=== PATIENT | male | born 1970 | race Caucasian/White ===

== ENCOUNTER → 2017-02-01 | Outpatient (CLI) | payer OTHER ==
--- NOTE | 2017-02-02 08:43 | PE ---
Nuclear medicine PET/CT HISTORY: Lymphoma Patient received 15.2 mCi F-18 FDG intravenously. Delayed scanning performed from the skull base to t he mid thighs. Localization and attenuation correction CT scan was performed. Correlation to prior nuclear medicine PET/CT 03/23/2016 Neck and chest: No evident adenopathy. Changes of possible gynecomastia noted. No evident lung mass. No suspicious hypermetabolic uptake. Abdomen pelvis: No retroperitoneal adenopathy, no mesenteric adenopathy evident. No liver mass. Osseous structures are within normal limits. Degenerative disc disease present at the lower lumbar sp ine. There may be a disc herniation present. IMPRESSION: No evident recurrence.
== END | disposition home or self-care (01) ==
LOC: RADPETMAIN 07:26
PROVIDERS: ATTEND Internal Medicine Hematology & Oncology
DX: C82.02 Follicular lymphoma grade I, intrathoracic lymph nodes (principal)
CPT/HCPCS: 78815; A9552

== ENCOUNTER → 2018-02-07 | Outpatient (CLI) | payer OTHER ==
--- NOTE | 2018-02-08 14:43 | PE ---
EXAMINATION TYPE: PET CT fusion skull to thigh DATE OF EXAM: 02/07/2018 COMPARISON: No recent CT comparisons at this location. Prior PET/CT: 02/01/2017 HISTORY: Lymphoma TECHNIQUE: Following the intravenous administration of 12.018 mCi of F-18 FDG, whole body images are performed from the skull base to the midthigh. Images are reviewed on the computer in the coronal, axial, and sagittal planes. Reconstructed rotating images are created on independent workstation and reviewed on the computer. A localization and attenuation correction CT is performed in conjunction with the PET scan. DLP: 525.6 mGycm SCAN: Subsequent Blood glucose: 102 mg/dL Average Mediastinum SUV: 1.26 Average Liver SUV: 2.13 FINDINGS: NECK: Mild uptake within the thyroid. Correlate with laboratory values. Suspicious focal hot nodules not identified. Thyroid could be evaluated with ultrasound. No additional areas suspicious for uptak e within the neck are evident. THORAX: No abnormal uptake ABDOMEN: No abnormal uptake PELVIS: There is a focus of radiotracer accumulation within the right inguinal lymph node. This measu res 2.41. Recurrent or residual lymphoma could be considered. OSSEOUS STRUCTURES: No abnormal uptake LOCALIZATION CT: No suspicious enlarged lymphadenopathy within the neck. A small jugulodigastric lymp h node is present on the left. No suspicious uptake is evident. Thyroid appears unremarkable noncontr ast CT images. Shotty lymphadenopathy is in the mediastinum. No enlarged mediastinal nodes by CT crit eria is evident. The ascending thoracic aorta at the level of main pulmonary artery is 3.5 cm. The ma in pulmonary bifurcation is 2.7 cm. Some mild gynecomastia may be present. Clinical correlation breas t exam is recommended. Vascular calcifications within the aorta. The lymph node the right inguinal re gion is enlarged measuring 1.3 cm. Image 252. COMPARISON: Right inguinal lymph node is new. IMPRESSION: 1. Evaluation for recurrence at a right inguinal lymph node is recommended. Additional suspicious are as for recurrent lymphoma are not identified. 2. There is diffuse uptake within the thyroid. Correlate with laboratory thyroid values. Ultrasound c an further evaluate the thyroid.
== END | disposition home or self-care (01) ==
LOC: RADPETMAIN 07:34
PROVIDERS: ATTEND Internal Medicine Hematology & Oncology
DX: C82.02 Follicular lymphoma grade I, intrathoracic lymph nodes (principal); R94.8 Abnormal results of function studies of other organs and systems
CPT/HCPCS: 78815; A9552

== ENCOUNTER → 2018-04-21 | Outpatient (CLI) | payer OTHER | LOC: LABWHC1 12:17 | PROVIDERS: ATTEND Internal Medicine Endocrinology, Diabetes & Metabolism | DX: E03.8 Other specified hypothyroidism (principal) | CPT/HCPCS: 36415; 84443 ==

== ENCOUNTER → 2018-08-15 | Outpatient (CLI) | payer OTHER ==
--- NOTE | 2018-08-16 17:05 | PE ---
EXAMINATION TYPE: PET CT fusion skull to thigh DATE OF EXAM: 08/15/2018 COMPARISON: CT neck 01/29/2016 Prior PET/CT: Most recent exams 02/07/2018 HISTORY: Lymphoma TECHNIQUE: Following the intravenous administration of 13.256 mCi of F-18 FDG, whole body images are performed from the skull base to the midthigh. Images are reviewed on the computer in the coronal, axial, and sagittal planes. Reconstructed rotating images are created on independent workstation and reviewed on the computer. A localization and attenuation correction CT is performed in conjunction with the PET scan. DLP: 511.34 mGycm SCAN: Subsequent Blood glucose: 92 mg/dL Average Mediastinum SUV: 1.3 Average Liver SUV: 1.97 FINDINGS: NECK: No abnormal uptake THORAX: No abnormal uptake ABDOMEN: No abnormal uptake PELVIS: No abnormal uptake. The uptake within the right inguinal region with an SUV value 2.27 is dim inished from 2.41 previously. OSSEOUS STRUCTURES: No abnormal uptake LOCALIZATION CT: Small lymph nodes are in the left axillary region. Descending thoracic aorta measure s 3.6 cm in the main pulmonary artery. The main pulmonary artery measures 2.7 cm in the bifurcation. No suspicious adenopathy enlarged by CT criteria is evident. The appendix is unremarkable. COMPARISON: Previous subtle inguinal uptake may remain present but is diminished from the comparison currently measuring 2.2 cm SUV. This could be inflammatory in nature. IMPRESSION: 1. Minimal uptake within a right inguinal node has diminished SUV value from comparison. 2. No new radiotracer accumulation or enlarging lymphadenopathy is evident.
== END ==
LOC: RADPETMAIN 08:37
PROVIDERS: ATTEND Internal Medicine Hematology & Oncology
DX: C82.02 Follicular lymphoma grade I, intrathoracic lymph nodes (principal)
CPT/HCPCS: 78815; A9552

== ENCOUNTER → 2019-04-20 | Outpatient (CLI) | payer OTHER ==
[2019-04-20 15:48] LABS: Chol/HDL Ratio 4.6; LDL Cholesterol,Calculated 166.2 mg/dL (0.0-131.0); VLDL Calculation 31.8 mg/dL (5.00-40.00)
[2019-04-20 19:31] LABS: Hemoglobin A1C 6.2 % (4.0-6.0)
== END | disposition home or self-care (01) ==
LOC: LABWHC1 08:36
PROVIDERS: ATTEND Internal Medicine Endocrinology, Diabetes & Metabolism
DX: E03.8 Other specified hypothyroidism (principal); R73.09 Other abnormal glucose
CPT/HCPCS: 36415; 80061; 83036; 84443

== ENCOUNTER → 2019-08-27 | Outpatient (CLI) | payer BC, OTHER ==
--- NOTE | 2019-08-30 10:34 | PE ---
EXAMINATION TYPE: PET CT fusion skull to thigh DATE OF EXAM: 08/27/2019 COMPARISON: Prior PET/CT August 15, 2018 and older studies. HISTORY: Lymphoma originally diagnosed in 2013 on neck biopsy. Completed chemotherapy November 2015. TECHNIQUE: Following the intravenous administration of 11.42 mCi of F-18 FDG, whole body images are performed from the skull base to the midthigh. Images are reviewed on the computer in the coronal, a xial, and sagittal planes. Reconstructed rotating images are created on independent workstation and reviewed on the computer. A noncontrast CT is performed in conjunction with the PET scan. SCAN: Subsequent Scan FINDINGS: Mean SUV mediastinum: 0.54 Mean SUV liver: 1.79 SKULL BASE AND NECK: Symmetric uptake above level of vocal cords presumed physiologic axial image 28. No new areas of suspicious hypermetabolic uptake or enlarging adenopathy with particular attention t o the right neck at area of original neoplasm. CHEST, MEDIASTINUM, AND HILAR REGION: No new areas of suspicious hypermetabolic uptake. ABDOMEN AND PELVIS: No new areas of suspicious hypermetabolic uptake. OSSEOUS STRUCTURES: No new areas of suspicious hypermetabolic uptake. OTHER CT: Bilateral gynecomastia redemonstrated. Prostate gland upper limits of normal in size, corre late clinically for BPH. IMPRESSION: No suspicious new hypermetabolic uptake or enlarging adenopathy to suggest active neoplas tic recurrence.
== END | disposition home or self-care (01) ==
LOC: RADPETMAIN 09:49
PROVIDERS: ATTEND Internal Medicine Hematology & Oncology
DX: C82.02 Follicular lymphoma grade I, intrathoracic lymph nodes (principal)
CPT/HCPCS: 78815; A9552

== ENCOUNTER → 2019-09-22 | Outpatient (CLI) | payer BC ==
[2019-09-22 16:20] LABS: African American GFR (CKD) 101.3 (60.0-200.0); Albumin 4.8 g/dL (3.80-4.90); Albumin/Globulin Ratio 2.29 (1.60-3.17); Anion Gap 9.2 mmol/L (4.00-12.00); Calcium 9.9 mg/dL (8.7-10.3); Carbon Dioxide 28.8 mmol/L (21.6-31.8); Chol/HDL Ratio 4.52; Globulin 2.1 g/dL (1.6-3.3); LDL Cholesterol,Calculated 174.8 mg/dL (0.0-131.0); Non-African American GFR(CKD) 87.4 (60.0-200.0); Potassium 4.4 mmol/L (3.5-5.5); Total Bilirubin 0.7 mg/dL (0.3-1.2); Total Protein 6.9 g/dL (6.2-8.2); VLDL Calculation 22.2 mg/dL (5.00-40.00)
[2019-09-22 17:15] LABS: Urine Creatinine 77.4 mg/dL
[2019-09-22 17:24] LABS: Hemoglobin A1C 6.1 % (4.0-6.0)
== END | disposition home or self-care (01) ==
LOC: LABWHC1 10:11
PROVIDERS: ATTEND Internal Medicine Endocrinology, Diabetes & Metabolism
DX: E11.9 Type 2 diabetes mellitus without complications (principal); E03.8 Other specified hypothyroidism
CPT/HCPCS: 36415; 80053; 80061; 82043; 82570; 83036; 84443

== ENCOUNTER → 2019-12-30 | Outpatient (CLI) | payer BC ==
[2019-12-30 18:43] LABS: African American GFR (CKD) 90.2 (60.0-200.0); Albumin 4.5 g/dL (3.80-4.90); Albumin/Globulin Ratio 2.25 (1.60-3.17); Anion Gap 8.3 mmol/L (4.00-12.00); BUN/Creat Ratio 15.45 Ratio (12.00-20.00); Carbon Dioxide 28.7 mmol/L (21.6-31.8); Chol/HDL Ratio 4.85; LDL Cholesterol,Calculated 163.2 mg/dL (0.0-131.0); Non-African American GFR(CKD) 77.9 (60.0-200.0); Potassium 4.2 mmol/L (3.5-5.5); Total Bilirubin 0.6 mg/dL (0.2-1.2); Total Protein 6.5 g/dL (6.2-8.2); VLDL Calculation 21.8 mg/dL (5.00-40.00)
[2019-12-30 20:25] LABS: Microalbumin Creatinine Ratio <30 mg/g Creat (0-30); Urine Creatinine 37.8 mg/dL
[2019-12-30 21:05] LABS: Hemoglobin A1C 6.3 % (4.0-6.0)
== END | disposition home or self-care (01) ==
LOC: LABWHC1 11:03
PROVIDERS: ATTEND Internal Medicine Endocrinology, Diabetes & Metabolism
DX: E11.9 Type 2 diabetes mellitus without complications (principal)
CPT/HCPCS: 36415; 80053; 80061; 82043; 82570; 83036; 84443

== ENCOUNTER → 2020-04-24 | Outpatient (CLI) | payer BC ==
[2020-04-24 15:27] LABS: African American GFR (CKD) 80.7 (60.0-200.0); Albumin 4.6 g/dL (3.80-4.90); Albumin/Globulin Ratio 2.56 (1.60-3.17); Calcium 9.8 mg/dL (8.7-10.3); Chol/HDL Ratio 5.04; Globulin 1.8 g/dL (1.6-3.3); LDL Cholesterol,Calculated 178.4 mg/dL (0.0-131.0); Non-African American GFR(CKD) 69.6 (60.0-200.0); Total Bilirubin 0.6 mg/dL (0.2-1.2); Total Protein 6.4 g/dL (6.2-8.2); VLDL Calculation 23.6 mg/dL (5.00-40.00)
[2020-04-24 16:21] LABS: Microalbumin Creatinine Ratio <30 mg/g Creat (0-30); Urine Creatinine 34.9 mg/dL
[2020-04-24 20:32] LABS: Hemoglobin A1C 5.9 % (4.0-6.0)
[2020-04-25 00:49] LABS: C-Peptide 0.85 ng/mL (0.81-3.85)
== END | disposition home or self-care (01) ==
LOC: LABWHC1 08:46
PROVIDERS: ATTEND Internal Medicine Endocrinology, Diabetes & Metabolism
DX: E11.9 Type 2 diabetes mellitus without complications (principal); E03.8 Other specified hypothyroidism
CPT/HCPCS: 36415; 80053; 80061; 82043; 82570; 83036; 84403; 84443; 84681

== ENCOUNTER → 2021-01-03 | Outpatient (CLI) | payer BC ==
[2021-01-03 16:34] LABS: Hemoglobin A1C 5.7 % (4.0-6.0)
[2021-01-03 18:41] LABS: African American GFR (CKD) 80.7 (60.0-200.0); Albumin 4.6 g/dL (3.80-4.90); Albumin/Globulin Ratio 2.3 (1.60-3.17); Anion Gap 10.4 mmol/L (4.00-12.00); BUN/Creat Ratio 13.33 Ratio (12.00-20.00); Calcium 9.6 mg/dL (8.7-10.3); Carbon Dioxide 26.6 mmol/L (21.6-31.8); Chol/HDL Ratio 5.27; LDL Cholesterol,Calculated 168.6 mg/dL (0.0-131.0); Non-African American GFR(CKD) 69.6 (60.0-200.0); Potassium 4.1 mmol/L (3.5-5.5); Total Bilirubin 0.4 mg/dL (0.3-1.2); Total Protein 6.6 g/dL (6.2-8.2); VLDL Calculation 19.4 mg/dL (5.00-40.00)
[2021-01-03 21:48] LABS: Microalbumin Creatinine Ratio <30 mg/g Creat (0-30); Urine Creatinine 95.5 mg/dL
== END | disposition home or self-care (01) ==
LOC: LABWHC1 08:04
PROVIDERS: ATTEND Internal Medicine Endocrinology, Diabetes & Metabolism
DX: E11.9 Type 2 diabetes mellitus without complications (principal)
CPT/HCPCS: 36415; 80053; 80061; 82043; 82570; 83036; 84443

== ENCOUNTER → 2021-07-31 | Outpatient (CLI) | payer BC ==
[2021-07-31 14:43] LABS: ALT 47 U/L (10-49); AST 25 U/L (14-35); African American GFR (CKD) 80.1 (60.0-200.0); Albumin 4.9 g/dL (3.8-4.9); Albumin/Globulin Ratio 2.62 (1.60-3.17); Alkaline Phosphatase 101 U/L (41-126); BUN/Creat Ratio 14.25 Ratio (12.00-20.00); Blood Urea Nitrogen 17.1 mg/dL (9.0-27.0); Carbon Dioxide 26.5 mmol/L (20.0-27.5); Chloride 100 mmol/L (96-109); Globulin 1.9 g/dL (1.6-3.3); Glucose 117 mg/dL (70-110); LDL Cholesterol,Calculated 101.7 mg/dL (0.0-131.0); Non-African American GFR(CKD) 69.1 (60.0-200.0); Potassium 3.9 mmol/L (3.5-5.5); Sodium 137 mmol/L (135-145); Total Protein 6.8 g/dL (6.2-8.2); VLDL Calculation 18.22 mg/dL (5.00-40.00)
[2021-07-31 19:27] LABS: Microalbumin Creatinine Ratio <30 mg/g Creat (0-30); Urine Creatinine 23.7 mg/dL (39.0-259.0)
== END | disposition home or self-care (01) ==
LOC: LABWHC1 10:55
PROVIDERS: ATTEND Internal Medicine Endocrinology, Diabetes & Metabolism
DX: E11.9 Type 2 diabetes mellitus without complications (principal); E03.8 Other specified hypothyroidism
CPT/HCPCS: 36415; 80053; 80061; 82043; 82570; 83036; 84443

== ENCOUNTER → 2022-07-29 | Outpatient (CLI) | payer BC ==
[2022-07-29 19:37] LABS: Chol/HDL Ratio 3.37 Ratio; LDL Cholesterol,Calculated 106.6 mg/dL (0.0-131.0)
[2022-07-29 19:57] LABS: ALT 46 U/L (10-49); AST 29 U/L (14-35); African American GFR (CKD) 84.6 (60.0-200.0); Albumin 4.7 g/dL (3.8-4.9); Albumin/Globulin Ratio 2.17 (1.60-3.17); Alkaline Phosphatase 101 U/L (41-126); BUN/Creat Ratio 12.89 Ratio (12.00-20.00); Blood Urea Nitrogen 14.7 mg/dL (9.0-27.0); Carbon Dioxide 25.2 mmol/L (20.0-27.5); Chloride 99 mmol/L (96-109); Globulin 2.2 g/dL (1.6-3.3); Glucose 105 mg/dL (70-110); Potassium 4.2 mmol/L (3.5-5.5); Sodium 138 mmol/L (135-145); Total Protein 6.8 g/dL (6.2-8.2)
[2022-07-29 23:20] LABS: Urine Creatinine 97.5 mg/dL (39.0-259.0)
== END | disposition home or self-care (01) ==
LOC: LABWHC1 12:17
PROVIDERS: ATTEND Internal Medicine Endocrinology, Diabetes & Metabolism
DX: E03.8 Other specified hypothyroidism (principal); E11.65 Type 2 diabetes mellitus with hyperglycemia
CPT/HCPCS: 36415; 80053; 80061; 82043; 82570; 84443

== ENCOUNTER → 2022-11-19 | Outpatient (CLI) | payer BC ==
[2022-11-19 17:44] LABS: ALT 43 U/L (10-49); AST 32 U/L (14-35); Albumin 4.8 d/dL (3.8-4.9); Albumin/Globulin Ratio 2.29 Ratio (1.60-3.17); Alkaline Phosphatase 103 U/L (41-126); BUN/Creat Ratio 11.75 Ratio (12.00-20.00); Blood Urea Nitrogen 14.1 mg/dL (9.0-27.0); Calcium 9.8 mg/dL (8.7-10.3); Carbon Dioxide 26.4 mmol/L (21.6-31.8); Chloride 99 mmol/L (96-109); Chol/HDL Ratio 3.63 Ratio; Globulin 2.1 d/dL (1.6-3.3); Glucose 101 mg/dL (70-110); LDL Cholesterol,Calculated 136.3 mg/dL (0.0-131.0); Potassium 4.6 mmol/L (3.5-5.5); Sodium 139 mmol/L (135-145); Total Bilirubin 0.5 mg/dL (0.3-1.2); Total Protein 6.9 d/dL (6.2-8.2)
[2022-11-19 18:01] LABS: Microalbumin Creatinine Ratio <48 mg/g Cr (0-30); Urine Creatinine 24.8 mg/dL (39.0-259.0)
== END | disposition home or self-care (01) ==
LOC: LABWHC1 11:37
PROVIDERS: ATTEND Internal Medicine Endocrinology, Diabetes & Metabolism
DX: E11.9 Type 2 diabetes mellitus without complications (principal)
CPT/HCPCS: 36415; 80053; 80061; 82043; 82570; 83036; 84443

== ENCOUNTER → 2024-09-14 | Outpatient (CLI) | payer BC ==
[2024-09-14 15:14] LABS: Basophils # (A) 0.07 X 10*3/uL (0.00-0.10); Basophils % (A) 0.8 %; Eosinophils # (A) 0.16 X 10*3/uL (0.04-0.35); Eosinophils % (A) 1.8 %; HGB 15.4 g/dL (13.0-17.0); Lymphocytes # (A) 1.92 X 10*3/uL (0.90-5.00); Lymphocytes % (A) 21.2 %; MCHC 33.5 g/dL (32.0-37.0); MCV 92.7 FL (80.0-97.0); Mean Platelet Volume 10.2 FL (9.5-12.2); Monocytes # (A) 0.75 X 10*3/uL (0.20-1.00); Monocytes % (A) 8.3 %; NRBC Per 100 WBC 0 X 10*3/uL (0.00-0.01); Neutrophils # (A) 6.13 X 10*3/uL (1.80-7.70); Neutrophils % (A) 67.6 %; Platelet Count 290 X 10*3/uL (140-440); RBC 4.96 X 10*6/uL (4.40-5.60); RDW 13.8 % (11.5-14.5); WBC 9.06 X 10*3/uL (4.50-10.00)
[2024-09-14 15:23] LABS: ALT 40 U/L (10-49); AST 22 U/L (14-35); Albumin 4.5 g/dL (3.8-4.9); Albumin/Globulin Ratio 1.96 Ratio (1.60-3.17); Alkaline Phosphatase 129 U/L (41-126); Blood Urea Nitrogen 13.9 mg/dL (9.0-27.0); Calcium 9.9 mg/dL (8.7-10.3); Carbon Dioxide 26.4 mmol/L (21.6-31.8); Chloride 100 mmol/L (96-109); Chol/HDL Ratio 3.44 Ratio; Globulin 2.3 g/dL (1.6-3.3); Glucose 105 mg/dL (70-110); LDL Cholesterol,Calculated 98.3 mg/dL (0.0-131.0); Potassium 4.1 mmol/L (3.5-5.5); Sodium 140 mmol/L (135-145); Total Bilirubin 0.5 mg/dL (0.3-1.2); Total Protein 6.8 g/dL (6.2-8.2)
== END | disposition home or self-care (01) ==
LOC: LABWHC1 11:27
PROVIDERS: ATTEND Internal Medicine Endocrinology, Diabetes & Metabolism
DX: E03.8 Other specified hypothyroidism (principal); R73.03 Prediabetes; E78.2 Mixed hyperlipidemia
CPT/HCPCS: 36415; 80053; 80061; 83036; 84443; 85025